=== PATIENT | male | born 1990 | race Caucasian/White ===

== ENCOUNTER 2023-12-24 19:57 | Emergency (ER) | payer OTHER, SELFPAY ==
[2023-12-24 20:16] VITALS: BP 128/78; PULSE 92; TEMP 36.8; O2SAT 96; BMI 25.1
--- NOTE | 2023-12-24 20:22 | PC.NURSE ---
PT DOING YARD WORK AND THINKS MULCH OR BARK FLEW IN EYE. REDNESS TO RIGHT EYE WITH BLURRED VISION. ATTEMPTED IRRIGATION AT HOME
[2023-12-24] MEDS: 0.9 % SODIUM CHLORIDE 500 ML IV (20:30)
--- NOTE | 2023-12-24 20:41 | ED_ITS ---
HPI - Eye Problem General Chief complaint: Eye Problems Stated complaint: FOREIGN OBJECT IN EYE Time Seen by Provider: 12/24/23 20:18 Source: patient Mode of arrival: walk-in Limitations: no limitations History of Present Illness HPI Narrative: 33-year-old male presents for foreign body in his right eye. It went in about a few hours ago and he was weed whacking and he thinks it might be a small piece of mulch. He believes he saw it at home when he looked in the mirror. Left eye has no symptoms. He does not wear glasses or contacts. He has mild discomfort, foreign body sensation. Related Data Previous Rx's ?Medication ?Instructions ?Recorded sulfacetamide sodium 10 % eye drops 2 drp ophthalmic (eye) Q4H #15 mL 12/24/23 Allergies Allergy/AdvReac Type Severity Reaction Status Date / Time No Known Drug Allergies Allergy Verified 12/24/23 20:21 Review of Systems ROS Narrative A ten point review of systems is negative except as noted above. Exam Narrative Exam Narrative: Nurses note and vital signs reviewed and patient is not hypoxic. General: The patient appears well and in no apparent distress. Patient is resting comfortably on cart. Skin: Warm, dry, no pallor noted. There is no rash noted. Head: Normocephalic, atraumatic Eye: Right conjunctiva is minimally injected, left is normal. With visible examination without magnification there is a suspicion of a foreign body at the 3 o'clock position medial to the edge of the cornea on the sclera. Slit-lamp examination confirms that there is a very tiny foreign body appearing piece of material at that location. No other foreign body was found and lid eversion shows no foreign bodies Ears, Nose, Mouth, and Throat: oral mucosa is moist. Nares patent. Cardiovascular: Regular Rate and Rhythm Respiratory: Patient is in no distress, no accessory muscle use GI: Soft and nontender Musculoskeletal: No joint swelling Neurological: Awake and alert Psychiatric: Cooperative Constitutional Vital Signs, click to edit/add: Last Vital Signs Temp 98.3 F 12/24/23 20:16 Pulse 92 H 12/24/23 20:16 Resp 97 H 12/24/23 20:16 BP 128/78 12/24/23 20:16 Pulse Ox 96 12/24/23 20:16 O2 Del Method Room Air 12/24/23 20:16 Course Vital Signs Vital signs: Vital Signs Temperature 98.3 F 12/24/23 20:16 Pulse Rate 92 H 12/24/23 20:16 Respiratory Rate 97 H 12/24/23 20:16 Blood Pressure 128/78 12/24/23 20:16 Pulse Oximetry 96 12/24/23 20:16 Oxygen Delivery Method Room Air 12/24/23 20:16 Temperature 98.3 F 12/24/23 20:16 Pulse Rate 92 H 12/24/23 20:16 Respiratory Rate 97 H 12/24/23 20:16 Blood Pressure 128/78 12/24/23 20:16 Pulse Oximetry 96 12/24/23 20:16 Oxygen Delivery Method Room Air 12/24/23 20:16 MDM - Eye Problem MDM Narrative Medical decision making narrative: We have irrigated his eye with Yusuf lens set up and reexamination shows the foreign body to no longer be present. He was prescribed Bleph-10 eyedrops. Findings are discussed with the patient. Differential Diagnosis Differential diagnosis: Likely corneal abrasion, subconjunctival hemorrhage and other (Foreign body) Discharge Plan Discharge Stand Alone Forms: Portal Instructions Chief Complaint: Eye Problems Clinical Impression: Foreign body of sclera of right eye Patient Disposition: Home, Self-Care Time of Disposition Decision: 21:02 Condition: Good Mode of Transportation: Private Vehicle Prescriptions / Home Meds: New sulfacetamide sodium 10 % drops 2 drp ophthalmic (eye) Q4H Qty: 15 0RF Print Language: Spanish Instructions: Eye Foreign Body (ED) Referrals: DEEPALI LIEBERMAN [Physician] - 1 week ROVERTO JANSEN [Primary Care Provider] - 1 week
[2023-12-24] MEDS: TETRACAINE HCL 0.5% OP SOL 80 DROP/4 ML BOTTLE OP (20:43)
== END 2023-12-24 21:08 | disposition home or self-care (01) ==
PROVIDERS: Emergency Provider Emergency Medicine; PCP Family Medicine
DX: T15.81XA Foreign body in other and multiple parts of external eye, right eye, initial encounter (principal)
CPT/HCPCS: 99285